=== PATIENT | female | born 1985 | race African-American/Black ===

== ENCOUNTER 2018-01-15 23:19 | Inpatient (IN) ==
--- NOTE | 2018-01-15 23:32 | ED ---
History of Present Illness Primary Care Physician: NOT REQUIRED Chief Complaint: Bladder pressure, painful urination History of Present Illness: 40-year-old , IUP at 20.3 care complicated by history of delivery x3, IDDM/type 2 diabetes, tobacco use, hip arthritis. The patient presents complaining of the onset of burning with urination and urinary frequency yesterday. She reports there is associated urinary hesitancy. There have been no aggravating factors, no attempted treatments, no alleviating factors. The patient reports that she feels pressure and cramping pain over her bladder area. She denies any odor or blood in her urine. She denies any leaking of fluid or vaginal bleeding. She reports that she has had some increased discharge. She reports good movement. She denies any fever, chills, nausea, vomiting. She denies any painful uterine cramping or contractions. GENERAL ASSISTANT: , section x3 Past medical history: IDDM, hip arthritis Past surgical history: delivery x3 Family history: Cancer, CAD, NM, DM, HTN Social history: Tobacco use Meds/allergies: As per EMR - Inpatient Certification I certify that the inpatient services were ordered in accordance with Medicare regulations governing the order. This includes certification that hospital inpatient services are reasonable and necessary and in the case of services not specified as inpatient-only under 42 CFR 419.22(n), that they are appropriately provided as inpatient services in accordance to with the 2-midnight benchmark under 43 CFR 412.3(e) Review of Systems All other systems reviewed negative except as stated in HPI Exam Narrative: GENERAL: Well-nourished, well-developed patient. SKIN: Warm and dry. No rashes, masses, lesions noted HEAD: Normocephalic and atraumatic. EYES: No scleral icterus. No injection or drainage. ENT: No nasal drainage noted. Mucous membranes pink. Airway patent. NECK: Supple, trachea midline. No JVD. CARDIOVASCULAR: Regular rate and rhythm without murmurs, gallops, or rubs. RESPIRATORY: Breath sounds equal bilaterally. No accessory muscle use. BREASTS: Deferred ABDOMEN/GI: Abdomen soft, non-tender, bowel sounds present, no rebound, no guarding Gravid GENITOURINARY: Normal EGBUS. Speculum examination reveals no evidence of rupture of membranes. Grossly normal rugate, physiologic discharge. Amnisure negative. No cervical or vaginal masses noted. SVE closed/thick/high/posterior FHT's: heart tones were performed by Doppler and are appropriate for gestational age EXTREMITIES: No cyanosis or edema. BACK: Nontender without obvious deformity. No CVA tenderness. NEUROLOGICAL/psychiatric: Awake and alert x3. Grossly normal memory/affect. Grossly normal range of motion and gait. Cranial nerves II through XII grossly intact. Motor and sensory grossly within normal limits. Five out of 5 muscle strength in all muscle groups. Normal speech. Assessment and Plan - Plan Assessment/plan: 1. IUP at 20.3 2. UTI: The patient has evidence of a urinary tract infection on urinalysis. There is no evidence of pyelonephritis. The patient was given strict pyelonephritis precautions and is to return for any fever, chills, nausea, vomiting or other related concerns. She was given first dose of Macrobid here and a prescription for Macrobid 100 mg p.o. twice daily times 14 days. She was given a urinary anesthetic and counseled on possible side effects. She is to call in 2 days for the results of the urine culture. 3. well-being: heart tones are reassuring for appropriate age 4. No evidence of labor or P PROM, strict labor/P PROM precautions 5. Type 2 diabetes: Continue insulin regimen and diabetic diet, follow-up with primary OB 6. Tobacco use 7. Follow-up with primary OB in 1-2 days or sooner if needed Discharge Plan - Discharge Disposition Patient Disposition: 01 Discharge Home - Discharge Condition Condition: Good - Discharge Order Discharge Orders: Discharge Order (Routine); Ordered 01/15/18 Ordered By: Beatriz Carter - Physicians Team ED Provider: Beatriz Carter Primary Care Provider: NOT REQUIRED, - Discharge Instructions Print Language: Indonesian
--- NOTE | 2018-01-16 00:31 | ED ---
History of Present Illness Primary Care Physician: NOT REQUIRED Chief Complaint: leaking of fluid History of Present Illness: 32-year-old , IUP at 39.0 new care uncomplicated per patient report The patient presents complaining of a gush of fluid at 8:10 PM. She reports of fluid was clear and she is continued to have some leaking since. She reports occasional mild contractions. She reports normal movement. She denies any vaginal bleeding. She reports that the leaking of fluid was spontaneous and there were no precipitating factors that she is aware of. POUNCER: , denies STDs/abnormal Paps PMH: Denies FH: HTN PSH: Denies SH: Denies Meds/allergies: As per EMR - Inpatient Certification I certify that the inpatient services were ordered in accordance with Medicare regulations governing the order. This includes certification that hospital inpatient services are reasonable and necessary and in the case of services not specified as inpatient-only under 42 CFR 419.22(n), that they are appropriately provided as inpatient services in accordance to with the 2-midnight benchmark under 43 CFR 412.3(e) Review of Systems All other systems reviewed negative except as stated in HPI PMFSH - History History Provided By: Patient - Tobacco History Smoking Status: Never smoker - Alcohol History How Often Do You Have a Drink Containing Alcohol: Never - Substance Use History Substance History: No History of Abuse - Travel History Recent Travel in the [place] Within the Last 8 Weeks: No Recent Travel Out of the Country Within the Last 8 Weeks: No - Immunization History Tetanus Immunization: <5 Years Medications and Allergies Allergies Allergy/AdvReac Type Severity Reaction Status Date / Time latex Allergy Itching Verified 01/16/18 00:07 Home Medications Medication Instructions Recorded Confirmed Type ferrous sulfate 325 mg PO DAILY 01/16/18 01/16/18 History vit-iron fum-folic ac 1 tab PO DAILY 01/16/18 01/16/18 History [ Vitamin] Exam Vital signs: Vital Signs 01/15/18 23:41 01/15/18 23:50 Temperature 98.3 F Pulse Rate 102 H Respiratory Rate 16 Blood Pressure 116/70 Intake & Output 01/15/18 01/15/18 01/16/18 06:59 18:59 06:59 Weight 91.626 kg Narrative: GENERAL: Well-nourished, well-developed patient. SKIN: Warm and dry. No masses, rashes, lesions. HEAD: Normocephalic and atraumatic. EYES: No scleral icterus. No injection or drainage. ENT: No nasal drainage noted. Mucous membranes pink. Airway patent. NECK: Supple, trachea midline. No JVD. CARDIOVASCULAR: Regular rate and rhythm without murmurs, gallops, or rubs. RESPIRATORY: Breath sounds equal bilaterally. No accessory muscle use. BREASTS: Deferred ABDOMEN/GI: Abdomen soft, non-tender, bowel sounds present, no rebound, no guarding Gravid GENITOURINARY: Normal EGBUS. No cervical or vaginal masses noted. Grossly normal rugae. Amnisure positive. SVE 1/60/-2 and cephalic presentation as per RN FHT's: heart tones are in the 120s with moderate long-term variability, good accelerations, no decelerations noted. This is a reactive NST and category 1 heart rate tracing. heart rate is reassuring and appropriate for gestational age. EXTREMITIES: No cyanosis or edema. BACK: Nontender without obvious deformity. No CVA tenderness. NEUROLOGICAL: Awake and alert x3. Grossly normal memory/affect. Grossly normal range of motion and gait. Cranial nerves II through XII are grossly intact.. Motor and sensory grossly within normal limits. Five out of 5 muscle strength in all muscle groups. Normal speech. Assessment and Plan - Plan Assessment/plan: 1. IUP at 39.0 2. PROM: Discussed risks and benefits of , risks and indications for delivery in brief. Discussed that provided her labor progresses appropriately and the fetus tolerates labor, a vaginal delivery is preferred. Discussed that it is likely she will need some medication to start the labor process. She is amenable to 1 dose of cervical ripening. We discussed the risks, benefits, and alternatives to Cervidil versus Cytotec. She is in agreement with Cytotec at this time. We discussed the use of oxytocin. All of her questions were answered and consents were signed. 3. GBS positive: Patient received 1 dose of ampicillin from [facility], will start penicillin G 4. well-being: Reassuring testing with reactive NST and category 1 heart rate tracing. Will continue monitoring Discharge Plan - Discharge Disposition Patient Disposition: Discharge Home - Discharge Condition Condition: Good - Discharge Order Discharge Orders: Discharge Order (Routine); Ordered 01/15/18 Ordered By: Beatriz Carter - Physicians Team ED Provider: Beatriz Carter Primary Care Provider: NOT REQUIRED,
--- NOTE | 2018-01-16 00:35 | P.HPOB ---
History of Present Illness Primary Care Physician: NOT REQUIRED Chief Complaint: leaking of fluid History of Present Illness: Patient Name: Filippo Navarro Date of : 89 Patient Status: Inpatient Attending Provider: Beatriz Carter Date: 01/16/18 00:26 Initialization Date: 01/16/18 00:26 History of Present Illness Primary Care Physician: NOT REQUIRED Chief Complaint: leaking of fluid History of Present Illness: 32-year-old , IUP at 39.0 new care uncomplicated per patient report The patient presents complaining of a gush of fluid at 8:10 PM. She reports of fluid was clear and she is continued to have some leaking since. She reports occasional mild contractions. She reports normal movement. She denies any vaginal bleeding. She reports that the leaking of fluid was spontaneous and there were no precipitating factors that she is aware of. 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 This includes certification that hospital inpatient services are reasonable and necessary and in the case of services not specified as inpatient-only under 42 CFR 419.22(n), that they are appropriately provided as inpatient services in accordance to with the 2-midnight benchmark under 43 CFR 412.3(e) Review of Systems All other systems reviewed negative except as stated in HPI [facility] - History History Provided By: Patient - Tobacco History Smoking Status: Never smoker - Alcohol History How Often Do You Have a Drink Containing Alcohol: Never - Substance Use History Substance History: No History of Abuse - Travel History Recent Travel in the [place] Within the Last 8 Weeks: No Recent Travel Out of the Country Within the Last 8 Weeks: No - Immunization History Tetanus Immunization: <5 Years Medications and Allergies Allergies Allergy/AdvReac Type Severity Reaction Status Date / Time latex Allergy Itching Verified 01/16/18 00:07 Home Medications Medication Instructions Recorded Confirmed Type ferrous sulfate 325 mg PO DAILY 01/16/18 01/16/18 History vit-iron fum-folic ac 1 tab PO DAILY 01/16/18 01/16/18 History [ Vitamin] Exam Vital signs: Vital Signs 01/15/18 23:41 01/15/18 23:50 Temperature 98.3 F Pulse Rate 102 H Respiratory Rate 16 Blood Pressure 116/70 Intake & Output 01/15/18 01/15/18 01/16/18 06:59 18:59 06:59 Weight 91.626 kg Narrative: GENERAL: Well-nourished, well-developed patient. SKIN: Warm and dry. No masses, rashes, lesions. HEAD: Normocephalic and atraumatic. EYES: No scleral icterus. No injection or drainage. ENT: No nasal drainage noted. Mucous membranes pink. Airway patent. NECK: Supple, trachea midline. No JVD. CARDIOVASCULAR: Regular rate and rhythm without murmurs, gallops, or rubs. RESPIRATORY: Breath sounds equal bilaterally. No accessory muscle use. BREASTS: Deferred ABDOMEN/GI: Abdomen soft, non-tender, bowel sounds present, no rebound, no guarding Gravid GENITOURINARY: Normal EGBUS. No cervical or vaginal masses noted. Grossly normal rugae. Amnisure positive. SVE 1/60/-2 and cephalic presentation as per RN FHT's: heart tones are in the 120s with moderate long-term variability, good accelerations, no decelerations noted. This is a reactive NST and category 1 heart rate tracing. heart rate is reassuring and appropriate for gestational age. EXTREMITIES: No cyanosis or edema. BACK: Nontender without obvious deformity. No CVA tenderness. NEUROLOGICAL: Awake and alert x3. Grossly normal memory/affect. Grossly normal range of motion and gait. Cranial nerves II through XII are grossly intact.. Motor and sensory grossly within normal limits. Five out of 5 muscle strength in all muscle groups. Normal speech. Assessment and Plan - Plan Assessment/plan: 1. IUP at 39.0 2. PROM: Discussed risks and benefits of , risks and indications for delivery in brief. Discussed that provided her labor progresses appropriately and the fetus tolerates labor, a vaginal delivery is preferred. Discussed that it is likely she will need some medication to start the labor process. She is amenable to 1 dose of cervical ripening. We discussed the risks, benefits, and alternatives to Cervidil versus Cytotec. She is in agreement with Cytotec at this time. We discussed the use of oxytocin. All of her questions were answered and consents were signed. 3. GBS positive: Patient received 1 dose of ampicillin from [facility], will start penicillin G 4. well-being: Reassuring testing with reactive NST and category 1 heart rate tracing. Will continue monitoring Discharge Plan - Discharge Disposition Patient Disposition: Discharge Home - Discharge Condition Condition: Good - Discharge Order Discharge Orders: Discharge Order (Routine); Ordered 01/15/18 Ordered By: Beatriz Carter - Physicians Team ED Provider: Beatriz Carter Primary Care Provider: NOT REQUIRED, - Inpatient Certification I certify that the inpatient services were ordered in accordance with Medicare regulations governing the order. This includes certification that hospital inpatient services are reasonable and necessary and in the case of services not specified as inpatient-only under 42 CFR 419.22(n), that they are appropriately provided as inpatient services in accordance to with the 2-midnight benchmark under 43 CFR 412.3(e) PMFSH - History History Provided By: Patient - Tobacco History Smoking Status: Never smoker - Alcohol History How Often Do You Have a Drink Containing Alcohol: Never - Substance Use History Substance History: No History of Abuse - Travel History Recent Travel in the [place] Within the Last 8 Weeks: No Recent Travel Out of the Country Within the Last 8 Weeks: No - Immunization History Tetanus Immunization: <5 Years Medications and Allergies Allergies Allergy/AdvReac Type Severity Reaction Status Date / Time latex Allergy Itching Verified 01/16/18 00:07 Home Medications Medication Instructions Recorded Confirmed Type ferrous sulfate 325 mg PO DAILY 01/16/18 01/16/18 History vit-iron fum-folic ac 1 tab PO DAILY 01/16/18 01/16/18 History [ Vitamin] Exam Vital signs: Vital Signs 01/15/18 23:41 01/15/18 23:50 Temperature 98.3 F Pulse Rate 102 H Respiratory Rate 16 Blood Pressure 116/70 Intake & Output 01/15/18 01/15/18 01/16/18 06:59 18:59 06:59 Weight 91.626 kg Caprini VTE Risk Assessment Caprini VTE Risk Assessment: No/Low Risk (score <= 1) Caprini Risk Assessment Model: Point Value = 1 Point Value = 2 Point Value = 3 Point Value = 5 Age 41-60 Minor surgery BMI > 25 kg/m2 Swollen legs Varicose veins or History of unexplained or recurrent spontaneous Oral contraceptives or hormone replacement Sepsis (< 1 month) Serious lung disease, including pneumonia (< 1 month) Abnormal pulmonary function Acute myocardial infarction Congestive heart failure (< 1 month) History of inflammatory bowel disease Medical patient at bed rest Age 61-74 Arthroscopic surgery Major open surgery (> 45 min) Laparoscopic surgery (> 45 min) Malignancy Confined to bed (> 72 hours) Immobilizing plaster cast Central venous access Age >= 75 History of VTE Family history of VTE Factor V Leiden Prothrombin 52269C Lupus anticoagulant Anticardiolipin antibodies Elevated serum homocysteine Heparin-induced thrombocytopenia Other congenital or acquired thrombophilia Stroke (< 1 month) Elective arthroplasty Hip, pelvis, or leg fracture Acute spinal cord injury (< 1 month) Prophylaxis Regimen: Total Risk Factor Score Risk Level Prophylaxis Regimen 0-1 Low Early ambulation 2 Moderate Order ONE of the following: *Sequential Compression Device (SCD) *Heparin 5000 units SQ BID 3-4 Higher Order ONE of the following medications: *Heparin 5000 units SQ TID *Enoxaparin/Lovenox 40 mg SQ daily (WT < 150 kg, CrCl > 30 mL/min) *Enoxaparin/Lovenox 30 mg SQ daily (WT < 150 kg, CrCl > 10-29 mL/min) *Enoxaparin/Lovenox 30 mg SQ BID (WT < 150 kg, CrCl > 30 mL/min) AND/OR *Sequential Compression Device (SCD) 5 or more Highest Order ONE of the following medications: *Heparin 5000 units SQ TID (Preferred with Epidurals) *Enoxaparin/Lovenox 40 mg SQ daily (WT < 150 kg, CrCl > 30 mL/min) *Enoxaparin/Lovenox 30 mg SQ daily (WT < 150 kg, CrCl > 10-29 mL/min) *Enoxaparin/Lovenox 30 mg SQ BID (WT < 150 kg, CrCl > 30 mL/min) AND *Sequential Compression Device (SCD)
[2018-01-16] MEDS ORDERED: Oxytocin 30 Units/500ml Premix 30 UNITS/500 ML BAG IV.SIG ONE (00:37)
[2018-01-16] MEDS ORDERED: Sodium Chlor 0.9% Inj 500 ML IV.SIG PRN (00:37)
[2018-01-16] MEDS ORDERED: Naloxone Inj 0.4 MG/ML Vial IV.PUSH PRN ×2 (00:37→19:34)
[2018-01-16] MEDS ORDERED: Penicillin G Potassium Inj 5,000,000 UNIT in Sodium Chloride 0.9% Inj 100 ML IV.SIG ONE (00:37)
[2018-01-16] MEDS ORDERED: fentaNYL Citrate Inj 100 MCG/2 ML Ampul IV.PUSH PRN ×2 (00:37)
[2018-01-16] MEDS ORDERED: Sod Chloride 0.9% Inj 1,000 ML IV.CONT PRN (00:37)
[2018-01-16] MEDS ORDERED: Oxytocin 30 Units/500ml Premix 30 UNITS/500 ML BAG IV.SIG PRN ×2 (00:44→09:44)
[2018-01-16] MEDS ORDERED: Citric Acid/Sodium Citrate Liq 30 ML UDC PO SCH (00:45)
[2018-01-16] MEDS ORDERED: Sod Chloride 0.9% Inj 1,000 ML IRRIGATION SCH (00:45)
[2018-01-16 01:22] LABS: Baso % (Auto) 0.2 % (0.0-2.0); Eos % (Auto) 0.4 % (0.0-4.0); Hematocrit 35.6 % (35.0-46.0); Hemoglobin 11.5 gm/dL (11.6-15.3); Lymph # (Auto) 1.2 th/mm3 (1.0-4.8); Lymph % (Auto) 16.1 % (9.0-44.0); Mean Corpuscular HGB Conc 32.2 % (32.0-36.0); Mean Corpuscular Hemoglobin 25.3 pg (27.0-34.0); Mean Corpuscular Volume 78.6 fL (80.0-100.0); Mean Platelet Volume 8.5 fL (7.0-11.0); Mono # (Auto) 0.5 th/mm3 (0.0-0.9); Mono % (Auto) 6.7 % (0.0-8.0); Neut # (Auto) 5.8 th/mm3 (1.8-7.7); Neut % (Auto) 76.6 % (16.0-70.0); Platelet Count 179 th/mm3 (150-450); Red Blood Count 4.53 mil/mm3 (4.00-5.30); Red Cell Distribution Width 16.8 % (11.6-17.2); White Blood Count 7.5 th/mm3 (4.0-11.0)
[2018-01-16 01:33] LABS: Bilirubin,Urine Negative (Negative); Clarity,Urine Hazy (Clear); Color,Urine Yellow (Yellw/Straw); Glucose,Urine (UA) Negative (Negative); Leukocyte Esterase,Urine Negative (Negative); Mucus,Urine Few /lpf (Occasional); Nitrite,Urine Negative (Negative); Specific Gravity,Urine 1.028 (1.002-1.035); Squamous Epithelial Cell,Urine 3 /hpf (0-5)
[2018-01-16 01:47] LABS: Amphetamine Urine With Conf Neg (Neg); Benzodiazepine Urine With Conf Neg (Neg)
[2018-01-16] MEDS ORDERED: Penicillin G Potassium Inj 2,500,000 UNIT in Sodium Chlor 0.9% Inj 100 ML IV.SIG SCH (04:38)
[2018-01-16] MEDS: Penicillin G Potassium Inj 2,500,000 UNIT in Sodium Chlor 0.9% Inj 100 ML IV.SIG SCH ×3 (10:01→18:15)
--- NOTE | 2018-01-16 10:26 | P.OBLABOR ---
Subjective Interval history: Patient is a 32 year old at 39 weeks admitted to labor and delivery. Patient starting to experience painful contractions. Doing well. GENERAL: Well-nourished, well-developed patient. SKIN: Warm and dry. ABDOMEN/GI: Abdomen soft, non-tender, bowel sounds present, no rebound, no guarding Gravid to 39 weeks size GENITOURINARY: External Genitalia: intact and normal in appearance Dilatation: 3cm Effacement: 80 Station: -2 Membranes: SROM Uterine Contractions: q2-3min. FHT's: Category: 1 Baseline: 120 Reactive: + Variability: moderate Decels: early decels noted. EXTREMITIES: No cyanosis or edema. NEUROLOGICAL: Awake and alert. Motor and sensory grossly within normal limits. Normal speech. Continue routine L&D care. Anticipate vaginal delivery. Objective Vital Signs: Vital Signs - 8 hr 01/16/18 02:25 01/16/18 02:35 01/16/18 02:57 Temperature Pulse Rate 93 H 87 87 Respiratory Rate 18 Blood Pressure 01/16/18 03:10 01/16/18 03:40 01/16/18 03:45 Temperature Pulse Rate 82 88 85 Respiratory Rate Blood Pressure 01/16/18 03:50 01/16/18 03:53 01/16/18 05:57 Temperature 98.1 F 98.3 F Pulse Rate 85 83 75 Respiratory Rate 16 18 Blood Pressure 123/71 115/69 01/16/18 06:29 01/16/18 07:06 01/16/18 07:11 Temperature 97.8 F Pulse Rate 74 76 Respiratory Rate 16 Blood Pressure 116/71 116/64 01/16/18 07:44 01/16/18 07:45 01/16/18 08:45 Temperature Pulse Rate 76 81 Respiratory Rate 16 18 Blood Pressure 114/67 107/67 01/16/18 09:45 Temperature 98.2 F Pulse Rate 76 Respiratory Rate 18 Blood Pressure 125/77
[2018-01-16] MEDS ORDERED: fentaNYL 2MCG-Bupiv 0.125% Epi 150 ML EPIDURAL ONE (11:38)
[2018-01-16] MEDS ORDERED: Lidocaaine 1.5%/Epinephrine 1:200,000 PF Inj 5 ML Amp ONE (11:45)
[2018-01-16] MEDS ORDERED: Lidocaine PF 1% Inj 5 ML Vial ONE (11:45)
[2018-01-16] MEDS ORDERED: fentaNYL Citrate Inj 100 MCG/2 ML Ampul EPIDURAL ONE (12:30)
[2018-01-16] MEDS ORDERED: fentaNYL 2MCG-Bupiv 0.125% Epi 150 ML EPIDURAL PRN (12:30)
[2018-01-16] MEDS ORDERED: Measles/Mumps/Rubella Vaccine Inj 0.5 ML Vial SQ ONE (16:00)
[2018-01-16] MEDS ORDERED: Diphtheria/Tetanus/Pertussis Vaccine Inj 0.5 ML Syringe IM ONE (16:00)
--- NOTE | 2018-01-16 19:32 | P.OBDELI ---
Additional Information: Weeks Gestation: 39 Anesthesia: epidural Presentation: vertex, OA Nuchal Cord: none Shoulder Dystocia: no Delayed Cord Clampin min Placenta: retained placenta required light traction via ringed forceps without needing to cross the cervix. Episiotomy: none Laceration: 1st degree vaginal Repair: 2.0 chromic, running repair Estimated Blood Loss: 200 Delivery Time: 1911 Delivery Date: 01/16/18 Infant: male Weight: 3165 (1 min): 9 (5 min): 9 Supervised by: Drs. Ruiz and Pepper
[2018-01-16] MEDS ORDERED: Oxytocin 30 Units/500ml Premix 30 UNITS/500 ML BAG IV.CONT PRN (19:34)
[2018-01-16] MEDS ORDERED: Benzocaine 20% Top Spray 60 ML Can TOPICAL PRN (19:34)
[2018-01-16] MEDS ORDERED: Witch Hazel 50%/Glyderin 12.5% 40 Pad Jar RECTAL PRN (19:34)
[2018-01-16] MEDS ORDERED: Acetaminophen 325 MG Tablet PO PRN (19:34)
[2018-01-16] MEDS ORDERED: Bisacodyl 10 MG Supp RECTAL PRN (19:34)
[2018-01-16] MEDS ORDERED: Zolpidem Tartrate 5 MG Tablet PO PRN (21:00)
--- NOTE | 2018-01-17 09:05 | P.PNOB ---
Subjective Post day: 1 Interval history: day # 1. AFVSS overnight. Patient complaining of mild vaginal soreness and abdominal cramping, currently controlled with tylenol and motrin. Decreasing lochia. Denies dysuria. No breast tenderness. She is feeding the baby via breast. Appetite good. No nausea or vomiting. She has not passed flatus, or had a bowel movement yet. Ambulating well. Denies calf pain, shortness of breath, or cough. Otherwise, she is doing well this morning and has no other complaints. Objective Vital Signs/I&O: Vital Signs 01/16/18 09:45 01/16/18 10:28 01/16/18 10:30 Temperature 98.2 F Pulse Rate 76 88 Respiratory Rate 18 18 Blood Pressure 125/77 116/75 01/16/18 11:55 01/16/18 12:00 01/16/18 12:05 Temperature Pulse Rate 85 87 91 H Respiratory Rate 18 Blood Pressure 134/69 142/76 H 131/76 01/16/18 12:11 01/16/18 12:17 01/16/18 12:35 Temperature Pulse Rate 81 85 Respiratory Rate 18 18 Blood Pressure 119/62 116/61 01/16/18 12:40 01/16/18 12:43 01/16/18 13:00 Temperature 97.9 F Pulse Rate 83 90 Respiratory Rate 18 18 Blood Pressure 99/67 L 01/16/18 13:30 01/16/18 13:55 01/16/18 14:00 Temperature Pulse Rate 103 H 107 H Respiratory Rate 18 Blood Pressure 102/67 114/63 01/16/18 14:10 01/16/18 14:15 01/16/18 14:40 Temperature Pulse Rate 88 84 Respiratory Rate 18 Blood Pressure 107/66 104/50 L 01/16/18 15:15 01/16/18 15:30 01/16/18 15:45 Temperature 98.0 F Pulse Rate 78 Respiratory Rate 18 Blood Pressure 134/86 01/16/18 16:15 01/16/18 16:40 01/16/18 16:45 Temperature Pulse Rate 88 80 79 Respiratory Rate 18 18 Blood Pressure 135/88 101/50 L 108/53 L 01/16/18 17:45 01/16/18 18:01 01/16/18 18:15 Temperature Pulse Rate 92 H 96 H Respiratory Rate 18 18 Blood Pressure 112/67 119/57 L 01/16/18 19:01 01/16/18 19:15 01/16/18 19:30 Temperature Pulse Rate 117 H Respiratory Rate 18 18 Blood Pressure 124/78 01/16/18 19:31 01/16/18 19:35 01/16/18 19:44 Temperature 98.7 F Pulse Rate 107 H Respiratory Rate 18 Blood Pressure 118/58 L 01/16/18 19:45 01/16/18 20:00 01/16/18 20:03 Temperature Pulse Rate 130 H 103 H Respiratory Rate 18 Blood Pressure 110/90 112/70 01/16/18 20:16 01/16/18 20:27 01/16/18 20:45 Temperature 98.9 F Pulse Rate 104 H 103 H Respiratory Rate 18 Blood Pressure 116/72 119/66 01/16/18 21:20 01/17/18 08:00 Temperature 98.0 F 98.5 F Pulse Rate 98 H 87 Respiratory Rate 18 20 Blood Pressure 127/69 112/68 Intake & Output 01/16/18 01/17/18 01/17/18 18:59 06:59 18:59 Intake Total 3200 / 3200 Balance 3200 / 3200 Intake: IV 3200 / 3200 LR 1000 mL Inj 1,000 ML @ 125 2000 / 2000 mls/hr IV.CONT .Q8H PRICE Rx#: [id number] LR 1000 mL Inj 1,000 ML @ 3000 1000 / 1000 mls/hr IV.SIG UNSCH PRN Rx#: [id number] Pfizerpen-G Inj 2,500,000 UNIT 200 / 200 In NS Inj 100 ML @ 200 mls/hr IV.SIG Q4H PRICE Rx#:[id number] Result Diagrams: 01/16/18 00:55 Objective Remarks: GENERAL: Well-nourished, well-developed patient. CARDIOVASCULAR: Regular rate and rhythm without murmurs, gallops, or rubs. RESPIRATORY: Breath sounds equal bilaterally. No accessory muscle use. ABDOMEN/GI: Abdomen soft, non-tender. Fundus: Firm, non-tender at umbilicus. GENITOURINARY: Light to moderate bleeding. EXTREMITIES: No cyanosis or edema, non-tender, without signs of DVT. Medications and IVs: Active Medications Acetaminophen (Tylenol) 650 mg PO Q4H PRN PRN Reason: PAIN SCALE 1 TO 2 Al Hydroxide/Mg Hydroxide (Milk Of Magnesia Liq) 30 ml PO Q12H PRN PRN Reason: Mild Constipation Benzocaine (Americaine 20% Top [place]) 1 spray TOPICAL Q4H PRN PRN Reason: For Perineum Discomfort Bisacodyl (Dulcolax Supp) 10 mg RECTAL DAILY PRN PRN Reason: SEVERE CONSITIPATION Citric Acid/Sodium Citrate (Sodium Citrate/Citric Acid Liq) 30 ml PO [employer] [facility] Stop: 01/20/18 00:44 Ephedrine Sulfate (Ephedrine/Ns Syringe) 10 mg IV.PUSH UNSCH PRN PRN Reason: SEE LABEL COMMENTS Stop: 01/17/18 12:30 Last Admin: 01/16/18 16:50 Dose: 10 mg Fentanyl Citrate (Fentanyl Inj) 50 mcg IV.PUSH Q1H PRN PRN Reason: Pain Scale 3 - 5 Fentanyl Citrate (Fentanyl Inj) 100 mcg IV.PUSH Q1H PRN PRN Reason: PAIN SCALE 6 TO 10 Lactated Ringer's (Lr 1000 Ml Inj) 1,000 mls @ 3,000 mls/hr IV.SIG UNSCH PRN PRN Reason: compromise or epidural Last Admin: 01/16/18 16:50 Dose: 3,000 mls/hr Sodium Chloride (Ns Inj) 500 mls @ 1,000 mls/hr IV.SIG UNSCH PRN PRN Reason: SEE LABEL COMMENTS Sodium Chloride (Ns Inj) 1,000 mls @ 100 mls/hr IV.CONT .Q10H PRN PRN Reason: SEE LABEL COMMENTS Lactated Ringer's (Lr 1000 Ml Inj) 1,000 mls @ 125 mls/hr IV.CONT .Q8H [facility] Last Admin: 01/16/18 19:21 Dose: 125 mls/hr Fentanyl/Bupivacaine/Sodium Chlor (Fentanyl 2 Mcg-Bupiv 0.125% Epi) 150 mls @ 12 mls/hr EPIDURAL PRN PRN PRN Reason: for Labor Pain Last Admin: 01/16/18 14:09 Dose: 12 mls/hr Oxytocin (Pitocin 30 Units/Ns 500 Ml Premix) 30 units in 500 mls @ 100 mls/hr IV.CONT UNSCH PRN PRN Reason: Heavy bleeding Ibuprofen (Motrin) 800 mg PO Q8H PRN PRN Reason: For Cramping Lactulose (Lactulose Liq) 30 ml PO DAILY PRN PRN Reason: SEVERE CONSITIPATION Mineral Oil (Muri-Lube Oil) 10 ml TOPICAL PRN PRN PRN Reason: PRN perineal massage Miscellaneous Information (Misc Information) 1 each OTHER UNSCH PRN PRN Reason: SEE LABEL COMMENTS Stop: 01/17/18 12:30 Naloxone HCl (Narcan Inj) 0.1 mg IV.PUSH Q2M PRN PRN Reason: for opiate reversal Ondansetron HCl (Zofran Odt) 4 mg PO Q6H PRN PRN Reason: NAUSEA OR VOMITING Senna/Docusate Sodium (Maria Eugenia-Colace) 1 tab PO BID PRICE Sennosides (Senokot) 17.2 mg PO Q12H PRN PRN Reason: Moderate Constipation Sodium Chloride (Ns Flush) 2 ml IV.FLUSH BID PRICE Last Admin: 01/16/18 21:29 Dose: Not Given Sodium Chloride (Ns Flush) 2 ml IV.FLUSH PRN PRN PRN Reason: FLUSH AFTER USING IV ACCESS Witch Gail/Glycerin (Tucks Pads) 1 applicatio RECTAL QID PRN PRN Reason: HEMORRHOIDS Zolpidem Tartrate (Ambien) 5 mg PO HS PRN PRN Reason: SLEEP Assessment and Plan - Plan 32-year-old who is PPD# 1 s/p . -Continue routine care. -Tylenol and Motrin as needed for pain. -Encouraged OOB. Advised pelvic rest for 6 wks. -Will need a f/u appt. within 6 wks. -Contraception: she would like to continue to consider her options. -Anticipate discharge tomorrow sdw Dr. Parth rodgers OB attending, Dr. Ruiz
[2018-01-17] MEDS: Senna/Docusate Sodium 8.6/50 MG Tablet PO SCH (13:27)
[2018-01-18] MEDS: Senna/Docusate Sodium 8.6/50 MG Tablet PO SCH ×2 (04:39→08:42)
[2018-01-18 08:16] VITALS: BP 113/72; PULSE 85; RESP 20; TEMP 97.9
--- NOTE | 2018-01-18 09:45 | P.PNOB ---
Subjective Post day: 2 Interval history: day # 2. AFVSS overnight. Pain well-controlled. Decreased lochia. Denies dysuria. No breast tenderness. She is feeding the baby via breast and bottle. Appetite good. No nausea or vomiting. Passing flatus. Having bowel movements. Ambulating well. Denies calf pain, shortness of breath, or cough. Otherwise, she is doing well this morning and has no other complaints. Objective Vital Signs/I&O: Vital Signs 01/17/18 20:00 01/18/18 08:00 Temperature 98.1 F 97.9 F Pulse Rate 87 85 Respiratory Rate 18 20 Blood Pressure 130/70 113/72 Result Diagrams: 01/16/18 00:55 Objective Remarks: GENERAL: Well-nourished, well-developed patient. CARDIOVASCULAR: Regular rate and rhythm without murmurs, gallops, or rubs. RESPIRATORY: Breath sounds equal bilaterally. No accessory muscle use. ABDOMEN/GI: Abdomen soft, non-tender. Fundus: Firm, non-tender below the umbilicus. GENITOURINARY: Light to moderate bleeding. EXTREMITIES: No cyanosis or edema, non-tender, without signs of DVT. 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[employer] [facility] Stop: 01/20/18 00:44 Fentanyl Citrate (Fentanyl Inj) 50 mcg IV.PUSH Q1H PRN PRN Reason: Pain Scale 3 - 5 Fentanyl Citrate (Fentanyl Inj) 100 mcg IV.PUSH Q1H PRN PRN Reason: PAIN SCALE 6 TO 10 Lactated Ringer's (Lr 1000 Ml Inj) 1,000 mls @ 3,000 mls/hr IV.SIG UNSCH PRN PRN Reason: compromise or epidural Last Admin: 01/16/18 16:50 Dose: 3,000 mls/hr Sodium Chloride (Ns Inj) 500 mls @ 1,000 mls/hr IV.SIG UNSCH PRN PRN Reason: SEE LABEL COMMENTS Sodium Chloride (Ns Inj) 1,000 mls @ 100 mls/hr IV.CONT .Q10H PRN PRN Reason: SEE LABEL COMMENTS Lactated Ringer's (Lr 1000 Ml Inj) 1,000 mls @ 125 mls/hr IV.CONT .Q8H [facility] Last Admin: 01/16/18 19:21 Dose: 125 mls/hr Fentanyl/Bupivacaine/Sodium Chlor (Fentanyl 2 Mcg-Bupiv 0.125% Epi) 150 mls @ 12 mls/hr EPIDURAL PRN PRN PRN Reason: for Labor Pain Last Admin: 01/16/18 14:09 Dose: 12 mls/hr Oxytocin (Pitocin 30 Units/Ns 500 Ml Premix) 30 units in 500 mls @ 100 mls/hr IV.CONT UNSCH PRN PRN Reason: Heavy bleeding Ibuprofen (Motrin) 800 mg PO Q8H PRN PRN Reason: For Cramping Last Admin: 01/18/18 08:41 Dose: 800 mg Lactulose (Lactulose Liq) 30 ml PO DAILY PRN PRN Reason: SEVERE CONSITIPATION Mineral Oil (Muri-Lube Oil) 10 ml TOPICAL PRN PRN PRN Reason: PRN perineal massage Naloxone HCl (Narcan Inj) 0.1 mg IV.PUSH Q2M PRN PRN Reason: for opiate reversal Ondansetron HCl (Zofran Odt) 4 mg PO Q6H PRN PRN Reason: NAUSEA OR VOMITING Senna/Docusate Sodium (Maria Eugenia-Colace) 1 tab PO BID [facility] Last Admin: 01/18/18 08:42 Dose: 1 tab Sennosides (Senokot) 17.2 mg PO Q12H PRN PRN Reason: Moderate Constipation Sodium Chloride (Ns Flush) 2 ml IV.FLUSH BID [facility] Last Admin: 01/17/18 09:24 Dose: Not Given Sodium Chloride (Ns Flush) 2 ml IV.FLUSH PRN PRN PRN Reason: FLUSH AFTER USING IV ACCESS Witch Gail/Glycerin (Tucks Pads) 1 applicatio RECTAL QID PRN PRN Reason: HEMORRHOIDS Zolpidem Tartrate (Ambien) 5 mg PO HS PRN PRN Reason: SLEEP Assessment and Plan - Diagnosis (1) Vaginal delivery Code(s): O80 - Encounter for full-term uncomplicated delivery Status: Acute (2) 39 weeks gestation of Code(s): Z3A.39 - 39 weeks gestation of Status: Acute - Plan 32-year-old who is PPD# 1 s/p . -Continue routine care. -Tylenol and Motrin as needed for pain. -Encouraged OOB. Advised pelvic rest for 6 wks. -Will need a f/u appt. within 6 wks. -Contraception: she would like to continue to consider her options. -Anticipate discharge today sdw Dr. Alba and OB attending, Dr. Carter
== END 2018-01-18 13:58 | disposition home or self-care (01) ==
LOC: HOBED 23:19 → H2E 01-16 00:08 → H1EA 01-16 21:24
PROVIDERS: ADMIT Obstetrics & Gynecology; ATTEND Obstetrics & Gynecology